=== PATIENT | female | born 1970 | race Caucasian/White ===

== ENCOUNTER 2017-03-04 04:02 | Emergency (ER) | payer OTHER ==
[~2017-03-04] VITALS: Ht 167.6 cm; Wt 98.0 kg
[~2017-03-04 04:02] MED LIST: BENTYL20 MG PO; FLOMAX(MONOGRA0.4 MG PO; PERCOCET 325 MG1 TA2 PO; VICODIN 300 MG-1 TAB PO; ZOFRAN ODT4 MG SL; ZOFRAN4 M1 SL
[2017-03-04 04:36] LABS: ABSOLUTE BASOPHIL COUNT 0.1 /CUMM (0.0-0.2); ABSOLUTE EOSINOPHIL COUNT 0.4 /CUMM (0.0-0.7); ABSOLUTE GRANULOCYTE CT 7.3 /CUMM (1.4-6.5); ABSOLUTE MONOCYTE COUNT 0.6 /CUMM (0.10-0.60); BASOPHIL % 1.1 % (0.0-2.0); EOSINOPHIL % 3.3 % (0-5); MEAN CORPUSCULAR HGB 29.5 PG (27.0-31.0); MEAN CORPUSCULAR HGB CONC 33.6 G/DL (33.0-37.0); MEAN CORPUSCULAR VOLUME 87.8 FL (81.0-99.0); MEAN PLATELET VOLUME 7.3 FL (7.4-10.4); PLATELET COUNT 264 /CUMM (130-400); RBC DISTRIBUTION WIDTH 15.4 % (11.5-14.5); RED BLOOD CELL CT 4.67 /CUMM (4.20-5.40); WHITE BLOOD CELL COUNT 11.3 /CUMM (4.8-10.8)
--- NOTE | 2017-03-04 04:44 | ED GI/GU/ABDOMINAL COMPLAINT ---
History of Present Illness General Chief Complaint: Abdominal Pain/Flank Pain Stated Complaint: RLQ PAIN RADIATING TO BACK Source: patient Exam Limitations: no limitations Vital Signs & Intake/Output Vital Signs & Intake/Output Vital Signs Date Time Temp Pulse Resp B/P B/P Pulse O2 O2 Flow FiO2 Mean Ox Delivery Rate 03/04 0646 96.8 77 18 105/63 96 Room Air 03/04 0408 97.2 94 20 144/82 96 Room Air Allergies Coded Allergies: MDX - Erythromycin (ERYTHROMYCIN) (RASH 12/16/14) MDX - PCN (penicillin) (PCN (PENICILLIN)) (UNKNOWN 12/16/14) MDX - Sulfamethoxazole (From BACTRIM) (RASH 12/16/14) MDX - Trimethoprim (From BACTRIM) (RASH 12/16/14) Reconcile Medications Ondansetron (Zofran Odt) 4 MG TAB.RAPDIS 1 TAB SL Q8HR PRN NAUSEA OXYCODONE HCL/ACETAMINOPHEN (Percocet 5-325 MG Tablet) 325 MG/5 MG TAB 1 TAB PO Q4-6 PRN PRN PAIN Triage Note: PT TO ED C/O RLQ THAT WRAPS TO RIGHT FLANK SINCE MONDAY. HAS BEEN GETTING WORSE.+N/V/D. URINARY URGENCY AND FREQUENCY. PMHOF KIDNEY STONES "FEELS THE SAME" Triage Nurses Notes Reviewed? yes ? N Is pt currently ? No HPI: Patient presents for evaluation of a severe constant abdominal pain the right lower quadrant began abruptly 5 days ago. Patient's pain has been constant since onset and described as sharp and severe with an associated urinary frequency but no dysuria or hematuria. Patient has been taking ibuprofen 800 mg every 4-6 hours without improvement. She is also experiencing an associated nausea. The pain is similar to prior renal colic she has had in the past. Past History Travel History Traveled to [place] past 21 day No Medical History Any Pertinent Medical History? see below for history Neurological: NONE EENT: NONE Cardiovascular: NONE Respiratory: NONE Gastrointestinal: NONE Hepatic: NONE Renal: nephrolithiasis Musculoskeletal: NONE Psychiatric: NONE Endocrine: NONE Blood Disorders: NONE Cancer(s): NONE ROTARY HELPER/Reproductive: NONE Surgical History Surgical History: cholecystectomy, hysterectomy, LITHOTRIPSY, URETERAL STENTS Psychosocial History What is your primary language Yoruba Tobacco Use: Current Daily Use Daily Tobacco Use Amount/Type: => 5 Cigarettes daily ETOH Use: denies use Illicit Drug Use: denies illicit drug use Family History Hx Contributory? No Review of Systems Review of Systems Constitutional: Reports: no symptoms. EENTM: Reports: no symptoms. Respiratory: Reports: no symptoms. Cardiovascular: Reports: no symptoms. GI: Reports: see HPI. Genitourinary: Reports: no symptoms. Musculoskeletal: Reports: no symptoms. Skin: Reports: no symptoms. Neurological/Psychological: Reports: no symptoms. Hematologic/Endocrine: Reports: no symptoms. Immunologic/Allergic: Reports: no symptoms. All Other Systems: Reviewed and Negative Physical Exam Physical Exam Gastrointestinal: see below Comments: Gen.: Well-nourished, well-developed, no acute respiratory distress. Head: Normocephalic, atraumatic. Eyes: Normal inspection bilaterally Ears: Normal inspection bilaterally Nose: Normal inspection Throat/mouth : Moist mucosa Neck: Supple, full range of motion, no goiter Heart: Regular rate and rhythm, no murmurs rubs or gallops Lungs: Clear to auscultation bilaterally with normal air entry Chest: Nontender Back: Normal range of motion Abdomen: Soft, right lower quadrant and right flank tenderness, nondistended, normal bowel sounds Extremities: Normal range of motion grossly, equal radial pulses, no cyanosis clubbing or edema Neurologic: Cranial nerves grossly intact, speech is clear Skin: warm and dry Psychiatric: Calm, cooperative, no apparent delusions or hallucinations Core Measures ACS in differential dx? No Severe Sepsis Present: No Septic Shock Present: No Progress Differential Diagnosis: rENAL COLIC, OVARIAN CYST, OVARIAN TORSION, uti/pYELO Plan of Care: Orders Procedure Date/time Status URINALYSIS 03/04 423 Complete LIPASE 03/04 423 Complete COMPREHENSIVE METABOLIC PANEL 03/04 423 Complete CBC WITHOUT DIFFERENTIAL 03/04 423 Complete AMYLASE 03/04 423 Complete Laboratory Tests 03/04/17 0540: Urinalysis MOD H, Urine Color YEL, Urine Clarity HAZY H, Urine pH 6.0, Ur Specific [place] <= 1.005, Urine Protein NEG, Urine Ketones NEG, Urine Nitrite NEG, Urine Bilirubin NEG, Urine Urobilinogen 0.2, Ur Leukocyte Esterase SMALL H , Ur Microscopic SEDIMENT EXAMINED, Urine WBC 3-5 H, Ur Epithelial Cells MOD H , Urine Bacteria MOD H, Urine Hemoglobin NEG, Urine Glucose NEG 03/04/17 0428: Anion Gap 12, Estimated GFR > 60, BUN/Creatinine Ratio 8.8, Glucose 103 H, Calcium 10.4 H, Total Bilirubin 0.5, AST 20, ALT 35, Alkaline Phosphatase 100, Total Protein 7.8, Albumin 4.4, Globulin 3.4, Albumin/Globulin Ratio 1.3, Amylase 70, Lipase 148, CBC w Diff NO MAN DIFF REQ, RBC 4.67, MCV 87.8, MCH 29.5 , RDW 15.4 H, MPV 7.3 L, Gran % 64.0, Lymphocytes % 26.0, Monocytes % 5.6, Eosinophils % 3.3, Basophils % 1.1, Absolute Granulocytes 7.3 H, Absolute Lymphocytes 3.0, Absolute Monocytes 0.6, Absolute Eosinophils 0.4, Absolute Basophils 0.1, PUBS MCHC 33.6 Diagnostic Imaging: Discussed w/RAD: CT Scan. Radiology Impression: PATIENT: VARSHA PAYNE PRESENT AGE: 46 PATIENT ACCOUNT NO: [id number] : 70 LOCATION: [facility] ORDERING PHYSICIAN: JONAS JUNIOR MD SERVICE DATE: 03/04/17 EXAM TYPE: CAT - CT ABD & PELVIS W/O IV CONTRAS EXAMINATION: CT ABDOMEN AND PELVIS WITHOUT CONTRAST CLINICAL INFORMATION: Right lower quadrant abdominal pain. History of renal stones. COMPARISON: 05/01/2015 TECHNIQUE: Multidetector volumetric imaging was performed from the superior aspect of the liver through the pubic symphysis. Sagittal and coronal reformatted images were obtained on the technologist's workstation. DLP: 718 mGy-cm FINDINGS: LUNG BASES: The visualized lung bases are unremarkable. LIVER, GALLBLADDER, AND BILIARY TREE: The liver is normal in size, shape, and attenuation. No focal hepatic lesion or biliary ductal dilatation is present. Status post cholecystectomy. PANCREAS: Unremarkable. SPLEEN: Unremarkable. ADRENAL GLANDS: The right adrenal gland is unremarkable. Mild thickening of the left adrenal gland without definite focal nodule. KIDNEYS AND URETERS: The kidneys are normal in size, shape, and attenuation. No hydronephrosis or hydroureter. There are no right-sided calculi. Multiple left renal calculi. The dominant calculus is at the midpole, 0.9 cm measuring 980 Hounsfield units. This is 8.5 cm from the posterior axillary line. Multiple 0.2 cm calculi are seen at the left upper pole and lower pole. BLADDER: Unremarkable. GASTROINTESTINAL TRACT: The stomach and small bowel are unremarkable. No dilated loops of bowel or evidence of obstruction. There is a normal appendix. No colonic wall thickening or inflammatory change. Scattered colonic diverticulosis without diverticulitis. No free air or free fluid. ABDOMINAL WALL: No significant hernia is appreciated. LYMPH NODES: Normal. VASCULAR: Unremarkable. PELVIC VISCERA: The uterus is not seen. No adnexal mass. OSSEOUS STRUCTURES: No acute or suspicious osseous abnormality. Degenerative changes of the spine, similar to previous. IMPRESSION: No acute inflammatory findings of the abdomen or pelvis. Normal appendix. Multiple nonobstructive left renal calculi. These are similar to prior. Colonic diverticulosis without diverticulitis. DICTATED BY: PARK MARTINEZ MD DATE/TIME DICTATED:03/04/17499 BAND STRAIGHTENER:JAIMEE DATE/TIME TRANSCRIBED:03/04/17499 CONFIDENTIAL, DO NOT COPY WITHOUT APPROPRIATE AUTHORIZATION. <Electronically signed in Other Vendor System> SIGNED BY: PARK MARTINEZ MD 03/04/17 0507 Initial ED EKG: none Comments: 03/04/2017 5:20:57 AM I have updated on her test results. She is feeling better after Toradol. She is driving home so I advised her that this will restrict pain medications that could be provided here in the emergency department. I have ordered acetaminophen and she will try to give a urine specimen. At this point the cause of Varsha's pain is unclear. 03/04/2017 6:51:36 AM because of Varsha's pain is still unclear at this point given the nondiagnostic urinalysis and unrevealing workup in the emergency department. I did discuss the possibility of an ovarian cyst or ovarian torsion but she has declined an ultrasound to further investigate this possibility. However I do not feel ovarian torsion is likely given the time course of the patient's pain. Plan anti-inflammatory for pain control and follow up with PCP. Departure Departure Disposition: HOME OR SELF CARE Condition: Stable Clinical Impression Primary Impression: Nonspecific abdominal pain Referrals: MALICK HARTMAN,PRANAV (PCP/Family) Additional Instructions: Diclofenac as prescribed for pain. Follow-up with your primary care doctor on Monday for reevaluation and further testing. Return if any concerns or sudden worsening. Please note that there might be incidental findings in your evaluation that are unrelated to the current emergency department visit. Please notify your primary care doctor about this emergency department visit in order to obtain and review all of the testing performed so that these incidental findings can be monitored as needed. If you had an x-ray performed, please understand that some fractures may not be seen on the initial set of x-rays. If your symptoms persist you might need a repeat set of x-rays to check for such a fracture. If you had a laceration evaluated, please understand that foreign bodies such as glass or wood may not be visible to the naked eye or on plain x-rays. If the wound becomes red, swollen, increasingly more painful or if there is any drainage from the wound, please have it reevaluated by a physician for the possibility of a retained foreign body. Thank you for choosing the [facility] Emergency Department for your care. It was a pleasure to serve you today. Jonas Junior M.D. [facility] Departure Forms: Customer Survey General Discharge Information Prescriptions: Current Visit Scripts Diclofenac Potassium 1 TAB PO TID PRN PAIN #15 TAB
--- NOTE | 2017-03-04 05:07 | CT SCAN REPORT ---
EXAMINATION: CT ABDOMEN AND PELVIS WITHOUT CONTRAST CLINICAL INFORMATION: Right lower quadrant abdominal pain. History of renal stones. COMPARISON: 05/01/2015 TECHNIQUE: Multidetector volumetric imaging was performed from the superior aspect of the liver through the pubic symphysis. Sagittal and coronal reformatted images were obtained on the technologist's workstation. DLP: 718 mGy-cm FINDINGS: LUNG BASES: The visualized lung bases are unremarkable. LIVER, GALLBLADDER, AND BILIARY TREE: The liver is normal in size, shape, and attenuation. No focal hepatic lesion or biliary ductal dilatation is present. Status post cholecystectomy. PANCREAS: Unremarkable. SPLEEN: Unremarkable. ADRENAL GLANDS: The right adrenal gland is unremarkable. Mild thickening of the left adrenal gland without definite focal nodule. KIDNEYS AND URETERS: The kidneys are normal in size, shape, and attenuation. No hydronephrosis or hydroureter. There are no right-sided calculi. Multiple left renal calculi. The dominant calculus is at the midpole, 0.9 cm measuring 980 Hounsfield units. This is 8.5 cm from the posterior axillary line. Multiple 0.2 cm calculi are seen at the left upper pole and lower pole. BLADDER: Unremarkable. GASTROINTESTINAL TRACT: The stomach and small bowel are unremarkable. No dilated loops of bowel or evidence of obstruction. There is a normal appendix. No colonic wall thickening or inflammatory change. Scattered colonic diverticulosis without diverticulitis. No free air or free fluid. ABDOMINAL WALL: No significant hernia is appreciated. LYMPH NODES: Normal. VASCULAR: Unremarkable. PELVIC VISCERA: The uterus is not seen. No adnexal mass. OSSEOUS STRUCTURES: No acute or suspicious osseous abnormality. Degenerative changes of the spine, similar to previous. IMPRESSION: No acute inflammatory findings of the abdomen or pelvis. Normal appendix. Multiple nonobstructive left renal calculi. These are similar to prior. Colonic diverticulosis without diverticulitis.
[2017-03-04 06:46] VITALS: BP 105/63
[2017-03-04] MEDS ORDERED: DICLOFENAC POTA50 M1 PO (06:56)
== END 2017-03-04 07:16 ==
LOC: ERH 04:02
PROVIDERS: Emergency Medicine
DX: R10.31 Right lower quadrant pain (principal)
CPT/HCPCS: 74176; 81001; 96361; 96365; 96375; J0131; J1885; J2405